=== PATIENT | female | born 1970 | race African-American/Black ===

== ENCOUNTER 2017-02-01 12:08 | Inpatient (IN) | payer MEDICAID, OTHER ==
[~2017-02-01] VITALS: Ht 154.9 cm; Wt 90.8 kg
[~2017-02-01 12:08] MED LIST: IBUP600T26 PO; LISI10TA PO; METO50CR PO; ROBA750T3 PO; TRAM50 PO
[2017-02-01 12:10] VITALS: BP 192/136; PULSE 75; RESP 15; TEMP 97.8; O2SAT 98
[2017-02-01 12:55] VITALS: BP 152/94; PULSE 66; RESP 15; O2SAT 100
--- NOTE | 2017-02-01 13:05 | RADRPT ---
EXAM DATE/TIME: 02/01/2017 12:51 [facility] COMPARISON: No previous studies available for comparison. INDICATIONS : Dizziness, nausea, short of breath. MEDICAL HISTORY : None. SURGICAL HISTORY : None. ENCOUNTER: Initial ACUITY: 4 - 6 days PAIN SCORE: 0/10 LOCATION: Bilateral chest FINDINGS: A single view of the chest demonstrates the lungs to be symmetrically aerated without evidence of mas s, infiltrate or effusion. The cardiomediastinal contours are unremarkable. Osseous structures are intact. CONCLUSION: Normal examination. Stewart Nguyen MD on February 01, 2017 at 13:04 Board Certified Radiologist. This report was verified electronically.
[2017-02-01 13:07] LABS: AUTOMATED NEUTROPHIL # 2.6 TH/MM3 (1.8-7.7); BASOPHIL # 0.1 TH/MM3 (0-0.2); BASOPHIL % 1.2 % (0.0-2.0); EOSINOPHIL # 0.2 TH/MM3 (0-0.4); EOSINOPHIL % 3.9 % (0.0-4.0); HEMATOCRIT 36.7 % (35.0-46.0); HEMO FLAGS DIFF FINAL; LYMPH % 42.8 % (9.0-44.0); LYMPHOCYTE # 2.6 TH/MM3 (1.0-4.8); MEAN CELL VOLUME 83.6 FL (80.0-100.0); MEAN CORPUSCULAR HEMOGLOBIN 28.8 PG (27.0-34.0); MEAN CORPUSCULAR HGB CONC 34.4 % (32.0-36.0); NEUT % 44.1 % (16.0-70.0); PLATELET COUNT 363 TH/MM3 (150-450); RED BLOOD COUNT 4.39 MIL/MM3 (4.00-5.30); RED CELL DISTRIBUTION WIDTH 14.2 % (11.6-17.2)
[2017-02-01 13:30] LABS: POTASSIUM 3.1 MEQ/L (3.5-5.1)
--- NOTE | 2017-02-01 13:33 | PD ---
HPI Chief Complaint: Headache Time Seen by Provider: 13:29 Travel History International Travel<30 days: No Contact w/Intl Traveler<30days: No Traveled to known affect area: No History of Present Illness HPI 46-year-old female that presents to the ED for evaluation of headache. Patient reports that she had a headache yesterday when she woke up. Per patient she lost her vision on her vision became blurry. Per patient she went back to sleep and her patient came back. The patient headaches on the left side. Per patient she also has numbness and tingling sensation to her left eye. She denies any numbness or tingling anywhere else. No weakness. No chest pain or shortness of breath. She does state that she has a history of headaches but she 's never had anything like this before. She does wear glasses and has stated that she heard patient has been blurry since this episode. She comes today because her symptoms are not improved completely. She still gets a headache on and off. Is not the worst headache of her life. No back pain or neck pain. No fevers chills or sweats. Pain per patient is 6 out of 10. Pressure-like. PFSH Past Medical History Depression: Yes Cardiovascular Problems: Yes (HTN) Hypertension: Yes Tetanus Vaccination: > 5 Years Influenza Vaccination: No ?: Not LMP: LAST MONTH Tubal Ligation: Yes Past Surgical History Surgical History: No Previous Surgery Hysterectomy: No Social History Alcohol Use: Yes Tobacco Use: No Substance Use: No Allergies-Medications (Allergen,Severity, Reaction): Coded Allergies: Norvasc (Verified Allergy, Severe, HIVES, 02/01/17) Wellbutrin (Verified Allergy, Severe, HIVES, 02/01/17) Reported Meds & Prescriptions Reported Meds & Active Scripts Active No Active Prescriptions or Reported Medications Review of Systems Except as stated in HPI: all other systems reviewed are Neg Physical Exam Narrative GENERAL: SKIN: Warm and dry. HEAD: Atraumatic. Normocephalic. EYES: Pupils equal and round 4 mms reactive to light and accomodation. No scleral icterus. No injection or drainage. ENT: No nasal bleeding or discharge. Mucous membranes pink and moist. No uvula deviation. No uvula deviation. NECK: Trachea midline. No JVD. CARDIOVASCULAR: Regular rate and rhythm. No murmurs, S3, S4. RESPIRATORY: No accessory muscle use. Clear to auscultation. Breath sounds equal bilaterally. GASTROINTESTINAL: Abdomen soft, non-tender, nondistended. Hepatic and splenic margins not palpable. MUSCULOSKELETAL: Extremities without clubbing, cyanosis, or edema. No obvious deformities. Full range of motion of the upper and lower extremities bilaterally. 2+ pulses bilaterally. NEUROLOGICAL: Awake and alert. No obvious cranial nerve deficits. Motor grossly within normal limits. Five out of 5 muscle strength in the arms and legs. Normal speech. PSYCHIATRIC: Appropriate mood and affect; insight and judgment normal. Data Data Last Documented VS Vital Signs Date Time Temp Pulse Resp B/P Pulse Ox O2 Delivery O2 Flow Rate FiO2 02/01/17 12:55 66 15 152/94 100 Room Air 02/01/17 12:10 97.8 Orders Electrocardiogram (02/01/17 12:43) Complete Blood Count With Diff (02/01/17 12:43) Basic Metabolic Panel (Bmp) (02/01/17 12:43) Thyroid Stimulating Hormone (02/01/17 12:43) Chest, Single Ap (02/01/17 12:43) Ct Brain W/O Iv Contrast(Rout) (02/01/17 12:43) Iv Access Insert/Monitor (02/01/17 12:43) Ecg Monitoring (02/01/17 12:43) Oximetry (02/01/17 12:43) Prochlorperazine Inj (Compazine Inj) (02/01/17 13:45) Diphenhydramine Inj (Benadryl Inj) (02/01/17 13:45) Ondansetron Inj (Zofran Inj) (02/01/17 13:47) Sodium Chlor 0.9% 1000 Ml Inj (Ns 1000 M (02/01/17 13:55) Potassium Chloride (Kcl) (02/01/17 15:45) Admit Order (Ed Use Only) (02/01/17 15:40) Labs Laboratory Tests Test 02/01/17 12:45 White Blood Count 6.0 TH/MM3 Red Blood Count 4.39 MIL/MM3 Hemoglobin 12.6 GM/DL Hematocrit 36.7 % Mean Corpuscular Volume 83.6 FL Mean Corpuscular Hemoglobin 28.8 PG Mean Corpuscular Hemoglobin 34.4 % Concent Red Cell Distribution Width 14.2 % Platelet Count 363 TH/MM3 Mean Platelet Volume 7.5 FL Neutrophils (%) (Auto) 44.1 % Lymphocytes (%) (Auto) 42.8 % Monocytes (%) (Auto) 8.0 % Eosinophils (%) (Auto) 3.9 % Basophils (%) (Auto) 1.2 % Neutrophils # (Auto) 2.6 TH/MM3 Lymphocytes # (Auto) 2.6 TH/MM3 Monocytes # (Auto) 0.5 TH/MM3 Eosinophils # (Auto) 0.2 TH/MM3 Basophils # (Auto) 0.1 TH/MM3 CBC Comment DIFF FINAL Differential Comment Sodium Level 139 MEQ/L Potassium Level 3.1 MEQ/L Chloride Level 105 MEQ/L Carbon Dioxide Level 25.0 MEQ/L Anion Gap 9 MEQ/L Blood Urea Nitrogen 9 MG/DL Creatinine 1.06 MG/DL Estimat Glomerular Filtration 67 ML/MIN Rate Random Glucose 75 MG/DL Calcium Level 8.9 MG/DL Thyroid Stimulating Hormone 1.140 uIU/ML [address] [place] [address] Medical Decision Making Medical Screen Exam Complete: Yes Emergency Medical Condition: Yes Medical Record Reviewed: Yes Interpretation(s) CBC & BMP Diagram 02/01/17 12:[address] 02/01/17 1243 Signed Impressions: Service Date/Time: Wednesday, February 01, 2017 14:15 - CONCLUSION: 1. Small focus of decreased density involving the right periventricular frontoparietal white matter. This could relate to a focal age indeterminate lacunar infarction or more focal area of chronic small vessel ischemic change. MRI could help differentiate. 2. Otherwise, no acute intracranial abnormality. Paul Dumont Jr., MD Chest X-Ray 02/01/17 1243 Signed Impressions: Service Date/Time: Wednesday, February 01, 2017 12:51 - CONCLUSION: Normal examination. Stewart Nguyen MD [facility] Differential Diagnosis Headache versus migraine headache versus cephalgia versus TIA versus stroke versus neuropathy versus visual loss versus a typical migraine Narrative Course 46-year-old female that presents to the ED for evaluation of left-sided headache. Patient was properly examined and was found to have signs and symptoms very consistent what appears to be headache. Patient reports some neurological deficits from the headache 2 days ago. Patient still has numbness and tingling to her left eye. Questionable TIA versus stroke versus a typical migraine. At this time I recommend labs and imaging. Case discussed in my attending Dr. Francisco who agrees with plan. Labs and imaging showed what appears to be abnormal CT scan. Unclear etiology symptoms. Definite concerning for TIA versus recent stroke. More than 6 hours old symptoms started yesterday in the morning. Case discussed with my attending Dr. Francisco who agrees to admission for CVA workup. This was discussed with the patient who agrees with plan. HEPAS was paged and Dr Lazar agrees to admission. Diagnosis Primary Impression: TIA (transient ischemic attack) Qualified Code: G45.9 - Transient cerebral ischemia, unspecified type Additional Impression: Cephalgia Qualified Code: R51 - Acute nonintractable headache, unspecified headache type Admitting Information Admitting Physician Requests: Observation Scripts No Active Prescriptions or Reported Meds González Mercado Feb 01, 2017 13:33
[2017-02-01] MEDS ORDERED: PROCHLORPERAZINE INJ 10 MG/2 ML VIAL IV PUSH ONE (13:45)
[2017-02-01] MEDS ORDERED: diphenhydrAMINE HCL 50 MG/ML VIAL IV PUSH ONE (13:45)
[2017-02-01] MEDS ORDERED: ONDANSETRON HCL 4 MG/2 ML VIAL ONE (13:47)
[2017-02-01] MEDS ORDERED: SODIUM CHLOR 0.9% 1000 ML INJ 1,000 ML IV SCH (13:55)
--- NOTE | 2017-02-01 14:27 | RADRPT ---
EXAM DATE/TIME: 02/01/2017 14:15 [facility] COMPARISON: CT BRAIN W/O CONTRAST, July 22, 2012, 12:13. INDICATIONS : Headache with intermittent blurred vision. RADIATION DOSE: 31.26 CTDIvol (mGy) MEDICAL HISTORY : Hypertension. SURGICAL HISTORY : Tubal ligation. ENCOUNTER: Initial ACUITY: 1 day PAIN SCALE: 4/10 LOCATION: cranial TECHNIQUE: Multiple contiguous axial images were obtained of the head. Using automated exposure control and adj ustment of the mA and/or kV according to patient size, radiation dose was kept as low as reasonably a chievable to obtain optimal diagnostic quality images. DICOM format image data is available electro nically for review and comparison. FINDINGS: There is an approximate 1 cm focal area of decreased attenuation involving the periventricular white matter of the right frontoparietal lobe. This is a new finding from the prior study. The remaining br ain parenchyma shows normal attenuation. No hemorrhage. Ventricles are normal in size. The paranasal sinuses and mastoid air cells are clear. Calvarium is intact. CONCLUSION: 1. Small focus of decreased density involving the right periventricular frontoparietal white matter. This could relate to a focal age indeterminate lacunar infarction or more focal area of chronic small vessel ischemic change. MRI could help differentiate. 2. Otherwise, no acute intracranial abnormality. Paul Dumont Jr., MD on February 01, 2017 at 14:21 Board Certified Radiologist. This report was verified electronically.
[2017-02-01] MEDS ORDERED: POTASSIUM CHLORIDE 10 MEQ CONTROLLED RELEASE TAB PO ONE (15:45)
[2017-02-01] MEDS ORDERED: LACTULOSE SYRUP 20 GM/30 ML CUP PO PRN (16:15)
[2017-02-01] MEDS ORDERED: ONDANSETRON HCL 4 MG/2 ML VIAL IVP PRN (16:15)
[2017-02-01] MEDS ORDERED: SODIUM CHLORIDE 0.9% FLUSH 10 ML FLUSH IV FLUSH PRN (16:15)
[2017-02-01] MEDS ORDERED: MAGNESIUM HYDROXIDE SUSP 30 ML CUP PO PRN (16:15)
[2017-02-01] MEDS ORDERED: NALOXONE HCL 0.4 MG/ML AMP IV PRN (16:15)
[2017-02-01] MEDS ORDERED: BISACODYL 10 MG SUPP RECTAL PRN (16:15)
[2017-02-01] MEDS ORDERED: SENNOSIDES 8.6 MG TAB PO PRN (16:15)
[2017-02-01 16:25] VITALS: BP 133/89; PULSE 67; RESP 15; O2SAT 99
[2017-02-01] MEDS: SODIUM CHLOR 0.9% 1000 ML INJ 1,000 ML IV SCH (16:52)
[2017-02-01 16:59] VITALS: BP 148/93; PULSE 71; RESP 15; O2SAT 99
[2017-02-01 20:00] VITALS: BP 155/101; PULSE 68; RESP 20; TEMP 98.5; O2SAT 98
[2017-02-01] MEDS: SODIUM CHLORIDE 0.9% FLUSH 10 ML FLUSH IV FLUSH SCH (21:00)
[2017-02-01] MEDS: DOCUSATE SODIUM 50 MG/SENNA 8.6 MG TAB PO SCH (21:00)
--- NOTE | 2017-02-01 21:06 | RADRPT ---
EXAM DATE/TIME: 02/01/2017 20:04 [facility] COMPARISON: No previous studies available for comparison. INDICATIONS : Cerebrovascular accident. MEDICAL HISTORY : Hyperthyroidism. SURGICAL HISTORY : Tubal ligation. ENCOUNTER: Initial ACUITY: 1 day PAIN SCORE: 07/28 LOCATION: Bilateral neck PEAK SYSTOLIC VELOCITIES (cm/sec): ICA/CCA RATIO: Right: 0.9 Left: 1.6 ICA: Right: 66 Left: 149 CCA: Right: 70 Left: 92 ECA: Right: 38 Left: 61 VERTEBRAL: Right: 37 antegrade Left: 62 antegrade Elevated flow velocities and ICA/CCA ratios have been found to correlate with increased degrees of vessel stenosis, calculated as percentage of diameter relative to a normal segment of distal ICA/CCA FINDINGS: RIGHT CAROTID: No significant stenosis is visualized. The waveforms are within normal limits. LEFT CAROTID: No significant stenosis is visualized. The waveforms are within normal limits. VERTEBRAL ARTERIES: Antegrade flow is seen in both vertebral arteries. MISCELLANEOUS: None. CONCLUSION: 1. No evidence for hemodynamically significant stenosis. Eduard Mosqueda MD on February 01, 2017 at 21:04 Board Certified Radiologist. This report was verified electronically.
--- NOTE | 2017-02-01 22:11 | RADRPT ---
EXAM DATE/TIME: 02/01/2017 21:48 [facility] COMPARISON: No previous studies available for comparison. INDICATIONS : Left leg numbness. MEDICAL HISTORY : Hypertension. SURGICAL HISTORY : Tubal ligation. ENCOUNTER: Initial ACUITY: 1 day PAIN SCORE: 1/10 LOCATION: Left leg. TECHNIQUE: Venous ultrasound of the leg was performed from the inguinal ligament to the proximal calf. Real-padma e, color Doppler and spectral tracing, compression and augmentation techniques were used. FINDINGS: There is normal compressibility of the deep venous system from the inguinal region to the proximal ca lf. No echogenic clot is seen in the lumen of the common femoral, femoral, popliteal, and posterior tibial veins. There is a normal response of the venous system to proximal and distal augmentation an d respiration. CONCLUSION: Normal examination. Eduard Mosqueda MD on February 01, 2017 at 22:09 Board Certified Radiologist. This report was verified electronically.
[2017-02-02] VITALS (8 sets, daily range): BP systolic 139–161; BP diastolic 85–97; PULSE 61–77; RESP 18–20; TEMP 97–98.8; O2SAT 95–100
--- NOTE | 2017-02-02 05:56 | HHI.HP ---
[facility] No Primary Care Physician Admission Diagnosis TIA, CVA rule out, cephaglia Diagnoses: Chief Complaint: headache, blurry vision and left leg numbness Travel History International Travel<30 Days: No Contact w/Intl Traveler <30 Da: No Traveled to Known Affected Are: No History of Present Illness 46 y/o female with a history of HTN and migraines presented to the ED with complaints of a GOVEA, blurry vision and left leg numbness. Patient states Wednesday she woke up with a throbbing headache, 8/10, blurry vision and left leg numbness, She preceded then to go back to sleep. When she woke up and continued throughout the day her vision began to get better but she still had a headache and numbness. She came to the hospital today because she could not take the pain from her leg and head anymore. She states her vision is now back to baseline but her headache is still about a 6-7 and her leg is painful and numb. Nothing makes the pain better or worse in her leg. She has not taken her blood pressure medications for more than six months because she does not have a PCP. She use to take clonidine, lisinopril and nifedipine. She denies any chest pain, sob, fever or chills. Review of Systems Constitutional: DENIES: Fever, Chills Respiratory: DENIES: Cough, Sputum production, Shortness of breath Cardiovascular: DENIES: Chest pain, Lower Extremity Edema Gastrointestinal: DENIES: Nausea, Vomiting Genitourinary: DENIES: Urinary frequency, Hematuria, Dysuria Musculoskeletal: DENIES: Back pain, Neck pain Neurologic: COMPLAINS OF: Paresthesias Psychiatric: COMPLAINS OF: Mood changes Past Family Social History Past Medical History HTN Migraines Depression Past Surgical History Tubal ligation Reported Medications Reported Meds & Active Scripts Active No Active Prescriptions or Reported Medications Allergies: Coded Allergies: Norvasc (Verified Allergy, Severe, HIVES, 02/01/17) Wellbutrin (Verified Allergy, Severe, HIVES, 02/01/17) Active Ordered Medications Current Medications Medications (Trade) Dose Ordered Sig/Lesly Route Start Time Stop Time Status Last Admin (NS 1000 ml Inj) 1,000 ml @ 70 mls/hr [id number] IV 02/01/17 16:12 02/01/17 16:52 (NS Flush) 2 ml UNSCH PRN IV FLUSH 02/01/17 16:15 (NS Flush) 2 ml BID IV FLUSH 02/01/17 21:00 (Zofran Inj) 4 mg Q6H PRN IVP 02/01/17 16:15 (Narcan Inj) 0.4 mg UNSCH PRN IV 02/01/17 16:15 (Gisele-Colace) 1 tab BID PO 02/01/17 21:00 (Milk Of Magnesia Liq) 30 ml Q12H PRN PO 02/01/17 16:15 (Senokot) 17.2 mg Q12H PRN PO 02/01/17 16:15 (Dulcolax Supp) 10 mg DAILY PRN RECTAL 02/01/17 16:15 (Lactulose Liq) 30 ml DAILY PRN PO 02/01/17 16:15 (Aspirin Chew) 81 mg DAILY PO 02/02/17 09:00 Family History Family history significant for hypertension Social History Tobacco use: Denies Alcohol use: Occasionally Illicit drug use: Denies Physical Exam Vital Signs Vital Signs Date Time Temp Pulse Resp B/P Pulse Ox O2 Delivery O2 Flow Rate FiO2 02/02/17 04:00 97.3 75 20 150/97 100 02/02/17 03:38 64 02/02/17 00:00 98.8 76 20 139/85 100 02/01/17 20:00 98.5 68 20 155/101 98 02/01/17 16:59 71 15 148/93 99 Room Air 02/01/17 16:25 67 15 133/89 99 Room Air 02/01/17 12:55 66 15 152/94 100 Room Air 02/01/17 12:55 100 Room Air 02/01/17 12:10 97.8 75 15 192/136 98 Physical Exam GENERAL: This is a well-nourished, well-developed patient, in no apparent distress. SKIN: No rashes, ecchymoses or lesions. Cool and dry. HEAD: Atraumatic. Normocephalic. EYES: Pupils equal round and reactive. ENT: Nose without bleeding, purulent drainage or septal hematoma. Airway patent. NECK: Trachea midline. No JVD or lymphadenopathy. Supple, nontender, no meningeal signs. CARDIOVASCULAR: Regular rate and rhythm without murmurs, gallops, or rubs. RESPIRATORY: Clear to auscultation. Breath sounds equal bilaterally. No wheezes , rales, or rhonchi. GASTROINTESTINAL: Abdomen soft, non-tender, nondistended. No hepato-splenomegaly , or palpable masses. No guarding. MUSCULOSKELETAL: Extremities without clubbing, cyanosis, or edema. No joint tenderness, effusion, or edema noted. No calf tenderness. NEUROLOGICAL: Awake and alert. Motor and sensory grossly within normal limits. LLE numbness. Five out of 5 muscle strength in all muscle groups. Normal speech. Laboratory Laboratory Tests Test 02/01/17 12:45 White Blood Count 6.0 Red Blood Count 4.39 Hemoglobin 12.6 Hematocrit 36.7 Mean Corpuscular Volume 83.6 Mean Corpuscular Hemoglobin 28.8 Mean Corpuscular Hemoglobin 34.4 Concent Red Cell Distribution Width 14.2 Platelet Count 363 Mean Platelet Volume 7.5 Neutrophils (%) (Auto) 44.1 Lymphocytes (%) (Auto) 42.8 Monocytes (%) (Auto) 8.0 Eosinophils (%) (Auto) 3.9 Basophils (%) (Auto) 1.2 Neutrophils # (Auto) 2.6 Lymphocytes # (Auto) 2.6 Monocytes # (Auto) 0.5 Eosinophils # (Auto) 0.2 Basophils # (Auto) 0.1 CBC Comment DIFF FINAL Differential Comment Sodium Level 139 Potassium Level 3.1 Chloride Level 105 Carbon Dioxide Level 25.0 Anion Gap 9 Blood Urea Nitrogen 9 Creatinine 1.06 Estimat Glomerular Filtration 67 Rate Random Glucose 75 Calcium Level 8.9 Thyroid Stimulating Hormone 1.140 3rd Gen Result Diagram: 02/01/17 1245 02/01/17 1245 Imaging Last Impressions Lower Extremity Ultrasound 02/01/176 Signed Impressions: Service Date/Time: Wednesday, February 01, 2017 21:48 - CONCLUSION: Normal examination. Eduard Mosqueda MD Head CT 02/01/17 1243 Signed Impressions: Service Date/Time: Wednesday, February 01, 2017 14:15 - CONCLUSION: 1. Small focus of decreased density involving the right periventricular frontoparietal white matter. This could relate to a focal age indeterminate lacunar infarction or more focal area of chronic small vessel ischemic change. MRI could help differentiate. 2. Otherwise, no acute intracranial abnormality. Paul Dumont Jr., MD Chest X-Ray 02/01/17 1243 Signed Impressions: Service Date/Time: Wednesday, February 01, 2017 12:51 - CONCLUSION: Normal examination. Stewart Nguyen MD Carotid Artery Ultrasound 02/01/17 0000 Signed Impressions: Service Date/Time: Wednesday, February 01, 2017 20:04 - CONCLUSION: 1. No evidence for hemodynamically significant stenosis. Eduard Mosqueda MD Assessment and Plan Problem List: (1) TIA (transient ischemic attack) ICD Code: G45.9 Status: Acute (2) Cephalgia ICD Code: R51 Status: Acute (3) HTN (hypertension) ICD Code: I10 Status: Acute Assessment and Plan 46 y/o female with a history of HTN and migraines presented to the ED with complaints of a GOVEA, blurry vision and left leg numbness. TIA, R/O CVA, patient with left leg numbness and pain Head CT reviewed and shows Small focus of decreased density involving the right periventricular frontoparietal white matter. This could relate to a focal age indeterminate lacunar infarction or more focal area of chronic small vessel ischemic change.Otherwise, no acute intracranial abnormality. Doppler Lower extremity US reviewed and negative for DVT Carotid US reviewed and unremarkable -MRI/MRA Brain ordered -MRI spine ordered by neurology -Consult neurology, Dr. Buenrostro -ASA daily -Lipid panel ordered -Allow permissive htn until CVA is ruled out -Pain management with IV Dilaudid -PT eval and treat Cephalalgia with blurry vision, may be related to HTN -Pain management with Tyl Hypokalemia, potassium 3.1 -Supplement given -BMP in AM, trend and replace as needed HTN, patient was taking clonidine, nifedipine, and lisinopril -Will begin a new regimen once CVA is ruled out -Case management consult for patient assistance with medication DVT prophylaxis: SCDs Discussed Condition With Patient and RN Physician Certification 2 Midnight Certification Type: Admission for Inpatient Services Order for Inpatient Services The services are ordered in accordance with Medicare regulations or non- Medicare payer requirements, as applicable. In the case of services not specified as inpatient-only, they are appropriately provided as inpatient services in accordance with the 2-midnight benchmark. Estimated LOS (days): 3 days is the estimated time the patient will need to remain in the hospital, assuming treatment plan goals are met and no additional complications. Post-Hospital Plan: Home Problem Qualifiers (1) TIA (transient ischemic attack): Qualified Code: G45.9 - Transient cerebral ischemia, unspecified type (2) Cephalgia: Qualified Code: R51 - Acute nonintractable headache, unspecified headache type Sally Del Real Feb 02, 2017 05:56
[2017-02-02] MEDS: SODIUM CHLOR 0.9% 1000 ML INJ 1,000 ML IV SCH ×2 (06:18→21:02)
[2017-02-02] MEDS ORDERED: ACETAMINOPHEN 325 MG TAB PO PRN (06:30)
--- NOTE | 2017-02-02 08:23 | MB ---
cc: RYAN DAVE DATE OF CONSULTATION: 02/01/2017 REASON FOR CONSULTATION Possible TIA. HISTORY OF PRESENT ILLNESS Ms. Dumont is a very nice 46-year-old female who developed a headache, mainly in the left side, which was throbbing in nature and pounding. She also noted numbness in the left leg, mainly in the anterior thigh area. She does have back pain as well. She had vision changes as well where she suddenly had visual loss and became very blurry; this returned to normal. PAST MEDICAL HISTORY She does have a history of migraine headaches in the past. NEUROLOGIC EXAMINATION Vital Signs: Blood pressure 148/93, pulse 71, respirations 15, temperature 97 degrees. Higher cortical functions: Normal. Cranial nerves: Intact. Motor exam: There is no focal deficit. Sensory exam intact. Reflexes are symmetric. IMAGING CT of the brain: Small focus of decreased density in the right periventricular frontoparietal white matter, possible old lacunar infarct, etiology unclear. Carotid ultrasound is normal. LABORATORY White count 6000, hemoglobin 12.6, hematocrit 36.7%, platelet count 363,000. Sodium 139, potassium 3.1, chloride 105, CO2 25, BUN 9, creatinine 1.06. IMPRESSION 1. Headaches, suspect migraine. 2. Left leg numbness, rule out meralgia paresthetica, rule out lumbar radiculopathy. RECOMMENDATIONS MRI brain, MRA brain. For further evaluation I would also like to get an MRI of the lumbar spine to rule out lumbar stenosis. MD PATRICIA Baez/ROSAS /9:32 PM /8:20 AM
[2017-02-02] MEDS: SODIUM CHLORIDE 0.9% FLUSH 10 ML FLUSH IV FLUSH SCH ×2 (08:38→21:00)
[2017-02-02] MEDS: DOCUSATE SODIUM 50 MG/SENNA 8.6 MG TAB PO SCH ×2 (08:39→21:02)
[2017-02-02] MEDS: ASPIRIN 81 MG CHEW TAB PO SCH (08:39)
[2017-02-02 08:43] LABS: AUTOMATED NEUTROPHIL # 2.1 TH/MM3 (1.8-7.7); BASOPHIL # 0.1 TH/MM3 (0-0.2); EOSINOPHIL # 0.2 TH/MM3 (0-0.4); EOSINOPHIL % 3.7 % (0.0-4.0); HEMATOCRIT 35.2 % (35.0-46.0); HEMO FLAGS DIFF FINAL; LYMPH % 47.8 % (9.0-44.0); LYMPHOCYTE # 2.6 TH/MM3 (1.0-4.8); MEAN CELL VOLUME 84.1 FL (80.0-100.0); MEAN CORPUSCULAR HGB CONC 34.5 % (32.0-36.0); NEUT % 38.5 % (16.0-70.0); PLATELET COUNT 327 TH/MM3 (150-450); RED BLOOD COUNT 4.19 MIL/MM3 (4.00-5.30); RED CELL DISTRIBUTION WIDTH 14.4 % (11.6-17.2); WHITE BLOOD COUNT 5.4 TH/MM3 (4.0-11.0)
[2017-02-02 09:20] LABS: ANION GAP 6 MEQ/L (5-15); BICARBONATE 25.5 MEQ/L (21.0-32.0); BLOOD UREA NITROGEN 6 MG/DL (7-18); CHLORIDE 108 MEQ/L (98-107); GLOMERULAR FILTRATION RATE 87 ML/MIN (>89); SODIUM (NA) 139 MEQ/L (136-145)
[2017-02-02 09:23] LABS: BETA HCG QUANT LESS THAN 1 MIU/ML (0-5)
[2017-02-02 10:15] LABS: HDL CHOLESTEROL 40.8 MG/DL (40.0-60.0)
[2017-02-02] MEDS: HYDROmorphone HCL PF 1 MG/ML VIAL IV PUSH PRN ×2 (12:36→22:22)
--- NOTE | 2017-02-02 15:29 | HHI.PR ---
Addendum to Inpatient Note Addendum Reason: Additional Documentation Additional Information Patient tells me that she continues to have a mild headache however the pain medication is helping. She tells me that her vision is improving but still blurry. Denies any weakness in her upper or lower extremities. She continued to have some numbness in her lower extremity. He denies any chest pain, shortness of breath but admits to nausea and vomited last night On exam: Her pupils are equal and reactive to light. Extraocular motions are intact. She moves all extremities. CVS: Regular rate and rhythm with no murmurs. Lungs are clear. Abdomen is soft nontender with no guarding or rebound. TIA, R/O CVA, patient with left leg numbness and pain Head CT reviewed and shows Small focus of decreased density involving the right periventricular frontoparietal white matter. This could relate to a focal age indeterminate lacunar infarction or more focal area of chronic small vessel ischemic change.Otherwise, no acute intracranial abnormality. Doppler Lower extremity US reviewed and negative for DVT Carotid US reviewed and unremarkable -MRI/MRA Brain ordered -MRI spine ordered by neurology -Dr. Buenrostro following. -ASA daily -Lipid panel LDL 140, HDL 40, triglycerides 118. Patient was started on Lipitor 40 mg daily -Allow permissive htn until CVA is ruled out -Added [place] when necessary for pain and IV Dilaudid for breakthrough pain. -PT eval and treat Cephalalgia with blurry vision, may be related to HTN -Pain management with norco Hypokalemia, potassium 3.0 -Supplement given -BMP in AM, trend and replace as needed HTN, patient was taking clonidine, nifedipine, and lisinopril -Will begin a new regimen once CVA is ruled out - Vasotec 1.25mg IV q6hr prn BP>180/100 -Case management consult for patient assistance with medication Bessie Lazar MD Feb 02, 2017 15:29
[2017-02-02] MEDS ORDERED: ACETAMINOPHEN/HYDROcodone 325 MG/5 MG TAB PO PRN (15:30)
[2017-02-02] MEDS ORDERED: ENALAPRILAT 1.25 MG/ML VIAL IV PUSH PRN (15:30)
[2017-02-02] MEDS: ACETAMINOPHEN/HYDROcodone 325 MG/10 MG TAB PO PRN (18:53)
--- NOTE | 2017-02-02 19:39 | HHI.PR ---
Review/Management Diagnosis headache--follow up brainMRI and MRA left leg numbness--possibly lumbar radiculopathy vs meralgia paresthetica--f/u mri lumbar spine Diagnosis/Plan: Subjective Subjective Comments No acute events reported Headache resolved still with left thigh numbness Active Medications Current Medications Medications (Trade) Dose Ordered Sig/Lesly Route Start Time Stop Time Status Last Admin (NS 1000 ml Inj) 1,000 ml @ 70 mls/hr [id number] IV 02/01/17 16:12 02/02/17 06:18 (NS Flush) 2 ml UNSCH PRN IV FLUSH 02/01/17 16:15 (NS Flush) 2 ml BID IV FLUSH 02/01/17 21:00 (Zofran Inj) 4 mg Q6H PRN IVP 02/01/17 16:15 02/02/17 16:40 (Narcan Inj) 0.4 mg UNSCH PRN IV 02/01/17 16:15 (Gisele-Colace) 1 tab BID PO 02/01/17 21:00 02/02/17 08:39 (Milk Of Magnesia Liq) 30 ml Q12H PRN PO 02/01/17 16:15 (Senokot) 17.2 mg Q12H PRN PO 02/01/17 16:15 (Dulcolax Supp) 10 mg DAILY PRN RECTAL 02/01/17 16:15 (Lactulose Liq) 30 ml DAILY PRN PO 02/01/17 16:15 (Aspirin Chew) 81 mg DAILY PO 02/02/17 09:00 02/02/17 08:39 (Tylenol) 650 mg Q4H PRN PO 02/02/17 06:30 02/02/17 06:21 (Dilaudid Pf Inj) 0.2 mg Q4H PRN IV PUSH 02/02/17 06:30 02/02/17 12:36 (Lipitor) 40 mg DAILY PO 02/03/17 09:00 ([place] 5-325 Mg) 1 tab Q4H PRN PO 02/02/17 15:30 ([place] 10-325 Mg) 1 tab Q6H PRN PO 02/02/17 15:30 02/02/17 18:53 (Vasotec Inj) 1.25 mg Q6H PRN IV PUSH 02/02/17 15:30 Allergies Allergies Coded Allergies Norvasc (Verified Allergy, Severe, HIVES, 02/01/17) Wellbutrin (Verified Allergy, Severe, HIVES, 02/01/17) Exam I&O / VS 02/01/17 02/01/17 02/02/17 14:59 22:59 06:59 Intake Total 240 ml Balance 240 ml Intake Oral 240 ml # Voids 3 # Bowel Movements 0 Vital Signs Date Time Temp Pulse Resp B/P Pulse Ox O2 Delivery O2 Flow Rate FiO2 02/02/17 16:00 98.1 62 20 161/96 99 02/02/17 12:00 98.7 73 20 144/92 98 02/02/17 08:00 97.0 61 20 143/89 99 02/02/17 07:00 77 02/02/17 04:00 97.3 75 20 150/97 100 02/02/17 03:38 64 02/02/17 00:00 98.8 76 20 139/85 100 02/01/17 20:00 98.5 68 20 155/101 98 Exam Comments alert, speech normal Cn 2-12 normal Motor -- no focal deficits Objective Micro and Labs Laboratory Tests Test 02/02/17 07:54 White Blood Count 5.4 Red Blood Count 4.19 Hemoglobin 12.2 Hematocrit 35.2 Mean Corpuscular Volume 84.1 Mean Corpuscular Hemoglobin 29.0 Mean Corpuscular Hemoglobin 34.5 Concent Red Cell Distribution Width 14.4 Platelet Count 327 Mean Platelet Volume 7.5 Neutrophils (%) (Auto) 38.5 Lymphocytes (%) (Auto) 47.8 Monocytes (%) (Auto) 9.0 Eosinophils (%) (Auto) 3.7 Basophils (%) (Auto) 1.0 Neutrophils # (Auto) 2.1 Lymphocytes # (Auto) 2.6 Monocytes # (Auto) 0.5 Eosinophils # (Auto) 0.2 Basophils # (Auto) 0.1 CBC Comment DIFF FINAL Differential Comment Sodium Level 139 Potassium Level 3.0 Chloride Level 108 Carbon Dioxide Level 25.5 Anion Gap 6 Blood Urea Nitrogen 6 Creatinine 0.85 Estimat Glomerular Filtration 87 Rate Random Glucose 81 Calcium Level 8.1 Triglycerides Level 118 Cholesterol Level 204 LDL Cholesterol 140 HDL Cholesterol 40.8 Cholesterol/HDL Ratio 5.00 Human Chorionic Gonadotropin, LESS THAN 1 Quant Gabo Buenrostro PhD Feb 02, 2017 19:39
[2017-02-02] MEDS ORDERED: FAMOTIDINE 20 MG TAB PO ONE (23:15)
[2017-02-03] VITALS (7 sets, daily range): BP systolic 138–163; BP diastolic 84–95; PULSE 54–87; RESP 16–20; TEMP 97.9–98.3; O2SAT 96–100
[2017-02-03] MEDS: ACETAMINOPHEN/HYDROcodone 325 MG/10 MG TAB PO PRN ×2 (04:09→17:14)
[2017-02-03] MEDS: SODIUM CHLORIDE 0.9% FLUSH 10 ML FLUSH IV FLUSH SCH ×2 (09:00→21:26)
[2017-02-03] MEDS: DOCUSATE SODIUM 50 MG/SENNA 8.6 MG TAB PO SCH ×2 (09:49→21:26)
[2017-02-03] MEDS: FAMOTIDINE 20 MG TAB PO SCH ×2 (09:50→21:25)
[2017-02-03] MEDS: ASPIRIN 81 MG CHEW TAB PO SCH (09:50)
[2017-02-03] MEDS: ATORVASTATIN 40 MG TAB PO SCH (09:50)
[2017-02-03] MEDS: SODIUM CHLOR 0.9% 1000 ML INJ 1,000 ML IV SCH (12:00)
--- NOTE | 2017-02-03 12:03 | RADRPT ---
EXAM DATE/TIME: 02/03/2017 11:32 [facility] COMPARISON: No previous studies available for comparison. INDICATIONS : MRI clearance, possible screw in abdomen. MEDICAL HISTORY : None. SURGICAL HISTORY : None. ENCOUNTER: Initial ACUITY: 1 day PAIN SCORE: 0/10 LOCATION: Bilateral abdomen. FINDINGS: Supine view of the abdomen was performed. The abdominal bowel gas pattern is normal. No abnormal ma sses, calcifications, or organomegaly is seen. The osseous structures are unremarkable. CONCLUSION: Normal examination. Stewart Nguyen MD on February 03, 2017 at 12:02 Board Certified Radiologist. This report was verified electronically.
--- NOTE | 2017-02-03 13:11 | RADRPT ---
EXAM DATE/TIME: 02/03/2017 12:13 [facility] COMPARISON: No previous studies available for comparison. INDICATIONS : LEFT LEG NUMBNESS MEDICAL HISTORY : Hypertension. SURGICAL HISTORY : Tubal ligation. ENCOUNTER: Subsequent ACUITY: 3 day PAIN SCORE: 0/10 LOCATION: LUMBAR TECHNIQUE: Multiplanar multisequence MRI of the lumbar spine was performed without contrast. FINDINGS: The most caudal appearing lumbar vertebra is numbered as L5. VERTEBRAE: Homogeneous signal. Normal alignment. CONUS: Normal level and configuration. T12-L1: The thecal sac has a normal diameter. No evidence of disc bulge or protrusion. The neural foramina are patent bilaterally. L1-L2: The thecal sac has a normal diameter. No evidence of disc bulge or protrusion. The neural foramina are patent bilaterally. L2-L3: The thecal sac has a normal diameter. No evidence of disc bulge or protrusion. The neural foramina are patent bilaterally. L3-L4: Asymmetric left-sided disc bulge abuts ventral thecal sac without canal stenosis. The neural foramin a are patent bilaterally. L4-L5: Mild broad-based disc bulge abuts the ventral thecal sac without canal stenosis. Mild facet arthropat hy. The neural foramina are patent bilaterally. L5-S1: Small to moderate central protrusion abuts the ventral thecal sac and abuts both S1 nerve roots in th e lateral recesses greater on the left. No canal stenosis. Mild facet arthropathy. The neural forami na are patent bilaterally. CONCLUSION: 1. Disc bulges at L3-4 and L4-5 levels without canal stenosis. 2. Small to moderate central protrusion abuts the S1 nerve roots in the lateral recesses but greater on the left. This likely accounts for patient's symptoms. No canal stenosis. Pj De Oliveira MD on February 03, 2017 at 13:07 Board Certified Radiologist. This report was verified electronically.
--- NOTE | 2017-02-03 13:32 | RADRPT ---
EXAM DATE/TIME: 02/03/2017 12:13 [facility] COMPARISON: No previous studies available for comparison. INDICATIONS : HEADACHE MEDICAL HISTORY : Hypertension. SURGICAL HISTORY : Tubal ligation. ENCOUNTER: Subsequent ACUITY: 2 day PAIN SCORE: 0/10 LOCATION: HEAD Please note a normal MRA of the brain does not entirely exclude the possibility of a small aneurysm, nor the possibility of distal intracranial vessel disease. TECHNIQUE: 3D time of flight MRA was performed. Source images, multiplanar STS MIP, and 3D volume MIP reconstru ctions were reviewed. FINDINGS: There is excellent visualization of the major intracranial arteries out to the second-order branch ve ssels. There is no evidence for aneurysm, vessel truncation or stenosis, and no evidence for vascula r malformation. Persistent circulation right posterior cerebral artery. Anterior communicating artery. No stenosis or aneurysm in the anterior, middle or posterior cerebral arteries. CONCLUSION: 1. Normal variants as described above. 2. No large vessel stenosis or aneurysm. Pj De Oliveira MD on February 03, 2017 at 13:27 Board Certified Radiologist. This report was verified electronically.
--- NOTE | 2017-02-03 13:43 | RADRPT ---
EXAM DATE/TIME: 02/03/2017 12:13 [facility] COMPARISON: No previous studies available for comparison. INDICATIONS : Cephalgia. CONTRAST: 18 cc Omniscan (gadodiamide) IV MEDICAL HISTORY : Hypertension. SURGICAL HISTORY : Tubal ligation. ENCOUNTER: Subsequent ACUITY: 3 day PAIN SCORE: 0/10 LOCATION: HEAD TECHNIQUE: Multiplanar, multisequence MRI of the brain was performed both prior to and following the administrat ion of paramagnetic contrast. FINDINGS: CEREBRUM: The ventricles are normal for age. Bilateral basal ganglia infarcts. No evidence of midline shift, ma ss lesion, hemorrhage or acute infarction. No extraaxial fluid collections are seen. The pituitary gland and suprasellar cistern are normal in configuration. WHITE MATTER: Scattered areas of high flair significant signal abnormalities are seen in the white matter. POSTERIOR FOSSA: The cerebellum and brainstem are intact. The 4th ventricle is midline. The cerebellopontine angle is unremarkable. The cerebellar tonsils are normal in position. DIFFUSION IMAGING: No focal areas of restricted diffusion are seen. No evidence of acute infarction. EXTRACRANIAL: The visualized portions of the orbits and paranasal sinuses are unremarkable. POST-CONTRAST: No abnormal areas of parenchymal or dural enhancement. No evidence of blood-brain barrier breakdown. CONCLUSION: 1. No acute intracranial abnormality. 2. Prominent white matter changes could be chronic ischemic small vessel vasculopathy versus demyelin ating process. Pj De Oliveira MD on February 03, 2017 at 13:41 Board Certified Radiologist. This report was verified electronically.
[2017-02-03] MEDS ORDERED: GADODIAMIDE PF 287 MG/ML 20 ML VIAL (for RAD MRI) IV ONE (14:13)
--- NOTE | 2017-02-03 14:18 | HHI.PR ---
Subjective Remarks earlier today she had some nausea and vomitted once. hasn't had this since. ordered food to eat and thinks that she felt nauseous because she hadn't eaten. denies any CP/SOB. blurry vision is much improved, no headaches at this time. Objective Vitals Vital Signs Date Time Temp Pulse Resp B/P Pulse Ox O2 Delivery O2 Flow Rate FiO2 02/03/17 08:00 98.0 64 18 163/88 99 02/03/17 07:57 87 02/03/17 06:30 98.3 67 20 161/95 96 02/03/17 06:30 98.3 67 20 161/95 96 02/03/17 00:00 98.1 72 18 138/85 97 02/02/17 20:00 69 02/02/17 20:00 98.3 64 18 156/95 95 02/02/17 16:00 98.1 62 20 161/96 99 I/O 02/02/17 02/02/17 02/02/17 02/03/17 02/03/17 02/03/17 07:00 15:00 23:00 07:00 15:00 23:00 Intake Total 240 ml 240 ml 1406 ml Balance 240 ml 240 ml 1406 ml Intake Oral 240 ml 240 ml IV Total 1406 ml # Voids 3 4 3 # Bowel Movements 0 Result Diagram: 02/02/17 0754 02/02/17 0754 Imaging Last Impressions Lumbar Spine MRI 02/03/17 0000 Signed Impressions: Service Date/Time: Friday, February 03, 2017 12:13 - CONCLUSION: 1. Disc bulges at L3-4 and L4-5 levels without canal stenosis. 2. Small to moderate central protrusion abuts the S1 nerve roots in the lateral recesses but greater on the left. This likely accounts for patient's symptoms. No canal stenosis. Pj De Oliveira MD Head Magnetic Resonance Angiography 02/03/17 0000 Signed Impressions: Service Date/Time: Friday, February 03, 2017 12:13 - CONCLUSION: 1. Normal variants as described above. 2. No large vessel stenosis or aneurysm. Pj De Oliveira MD Brain MRI 02/03/17 0000 Signed Impressions: Service Date/Time: Friday, February 03, 2017 12:13 - CONCLUSION: 1. No acute intracranial abnormality. 2. Prominent white matter changes could be chronic ischemic small vessel vasculopathy versus demyelinating process. Pj De Oliveira MD Abdomen X-Ray 02/03/17 0000 Signed Impressions: Service Date/Time: Friday, February 03, 2017 11:32 - CONCLUSION: Normal examination. Stewart Nguyen MD Lower Extremity Ultrasound 02/01/17 2206 Signed Impressions: Service Date/Time: Wednesday, February 01, 2017 21:48 - CONCLUSION: Normal examination. Eduard Mosqueda MD Head CT 02/01/17 1243 Signed Impressions: Service Date/Time: Wednesday, February 01, 2017 14:15 - CONCLUSION: 1. Small focus of decreased density involving the right periventricular frontoparietal white matter. This could relate to a focal age indeterminate lacunar infarction or more focal area of chronic small vessel ischemic change. MRI could help differentiate. 2. Otherwise, no acute intracranial abnormality. Paul Dumont Jr., MD Chest X-Ray 02/01/17 1243 Signed Impressions: Service Date/Time: Wednesday, February 01, 2017 12:51 - CONCLUSION: Normal examination. Stewart Nguyen MD Carotid Artery Ultrasound 02/01/17 0000 Signed Impressions: Service Date/Time: Wednesday, February 01, 2017 20:04 - CONCLUSION: 1. No evidence for hemodynamically significant stenosis. Eduard Mosqueda MD Objective Remarks GENERAL: This is a well-nourished, well-developed patient, in no apparent distress. HEAD: Atraumatic. Normocephalic. EYES: Pupils equal round and reactive. EOMI ENT: Nose without drainage. Airway patent. NECK: Trachea midline. No JVD or lymphadenopathy. Supple, nontender, no meningeal signs. CARDIOVASCULAR: Regular rate and rhythm without murmurs. RESPIRATORY: Clear to auscultation. Breath sounds equal bilaterally. No wheezes , rales, or rhonchi. GASTROINTESTINAL: Abdomen soft, non-tender, nondistended. No hepato-splenomegaly , or palpable masses. No guarding. MUSCULOSKELETAL: Extremities without edema. No joint tenderness, effusion, or edema noted. No calf tenderness. NEUROLOGICAL: Awake and alert. Motor and sensory grossly within normal limits. LLE numbness. Five out of 5 muscle strength in all muscle groups. Normal speech. A/P Problem List: (1) TIA (transient ischemic attack) ICD Code: G45.9 Status: Acute (2) Cephalgia ICD Code: R51 Status: Acute (3) HTN (hypertension) ICD Code: I10 Status: Acute Assessment and Plan TIA, R/O CVA, patient with left leg numbness and pain Head CT reviewed and shows Small focus of decreased density involving the right periventricular frontoparietal white matter. This could relate to a focal age indeterminate lacunar infarction or more focal area of chronic small vessel ischemic change.Otherwise, no acute intracranial abnormality. Doppler Lower extremity US reviewed and negative for DVT Carotid US reviewed and unremarkable -MRI/MRA: No acute intracranial abnormality. 2. Prominent white matter changes could be chronic ischemic small vessel vasculopathy versus demyelinating process. Normal variants. No large vessel stenosis or aneurysm -MRI spine: Disc bulges at L3-4 and L4-5 levels without canal stenosis. 2. Small to moderate central protrusion abuts the S1 nerve roots in the lateral recesses but greater on the left. This likely accounts for patient's symptoms. No canal stenosis -Dr. Buenrostro following. Will contact him to see if ok for discharge from his standpoint. will start pt on amlodipine 10mg po daily. monitor BPs -ASA daily -Lipid panel LDL 140, HDL 40, triglycerides 118. on Lipitor 40 mg daily - pain controlled w pain med regimen -PT evaluated the patient and doesn't recommend any PT Cephalalgia with blurry vision, may be related to HTN -Pain management with norco Hypokalemia -Supplement given -BMP in AM, trend and replace as needed HTN, -Will begin a new regimen once CVA is ruled out - Vasotec 1.25mg IV q6hr prn BP>160/90 Discharge Planning awaiting final recs from neuro Problem Qualifiers (1) TIA (transient ischemic attack): Qualified Code: G45.9 - Transient cerebral ischemia, unspecified type (2) Cephalgia: Qualified Code: R51 - Acute nonintractable headache, unspecified headache type Bessie Lazar MD Feb 03, 2017 14:18
[2017-02-03] MEDS ORDERED: POTASSIUM CHLORIDE 20 MEQ CONTROLLED RELEASE TAB PO ONE (15:30)
[2017-02-03] MEDS: LISINOPRIL 20 MG TAB PO SCH (17:07)
[2017-02-03] MEDS ORDERED: LISI-515 PO (17:17)
[2017-02-03] MEDS ORDERED: ASPI81CH25 PO (17:17)
[2017-02-03] MEDS ORDERED: ATOR40TA16 PO (17:17)
--- NOTE | 2017-02-03 17:19 | HHI.DS ---
Discharge Summary Admission Date Feb 01, 2017 at 16:16 Admitting Diagnosis TIA, CVA rule out, cephaglia (1) TIA (transient ischemic attack) ICD Code: G45.9 (2) Cephalgia ICD Code: R51 (3) HTN (hypertension) ICD Code: I10 Brief History - From Admission 46 y/o female with a history of HTN and migraines presented to the ED with complaints of a GOVEA, blurry vision and left leg numbness. Patient states Wednesday she woke up with a throbbing headache, 8/10, blurry vision and left leg numbness, She preceded then to go back to sleep. When she woke up and continued throughout the day her vision began to get better but she still had a headache and numbness. She came to the hospital today because she could not take the pain from her leg and head anymore. She states her vision is now back to baseline but her headache is still about a 6-7 and her leg is painful and numb. Nothing makes the pain better or worse in her leg. She has not taken her blood pressure medications for more than six months because she does not have a PCP. She use to take clonidine, lisinopril and nifedipine. She denies any chest pain, sob, fever or chills. CBC/BMP: 02/02/17 0754 02/02/17 0754 Significant Findings Laboratory Tests Test 02/01/17 02/02/17 12:45 07:54 Potassium Level 3.1 MEQ/L 3.0 MEQ/L (3.5-5.1) (3.5-5.1) Creatinine 1.06 MG/DL (0.50-1.00) Estimat Glomerular Filtration 67 ML/MIN (>89) 87 ML/MIN (>89) Rate Lymphocytes (%) (Auto) 47.8 % (9.0-44.0) Monocytes (%) (Auto) 9.0 % (0.0-8.0) Chloride Level 108 MEQ/L (98-107) Blood Urea Nitrogen 6 MG/DL (7-18) Calcium Level 8.1 MG/DL (8.5-10.1) Cholesterol Level 204 MG/DL (120-200) LDL Cholesterol 140 MG/DL (0-99) PE at Discharge GENERAL: This is a well-nourished, well-developed patient, in no apparent distress. HEAD: Atraumatic. Normocephalic. EYES: Pupils equal round and reactive. EOMI ENT: Nose without drainage. Airway patent. NECK: Trachea midline. No JVD or lymphadenopathy. Supple, nontender, no meningeal signs. CARDIOVASCULAR: Regular rate and rhythm without murmurs. RESPIRATORY: Clear to auscultation. Breath sounds equal bilaterally. No wheezes , rales, or rhonchi. GASTROINTESTINAL: Abdomen soft, non-tender, nondistended. No hepato-splenomegaly , or palpable masses. No guarding. MUSCULOSKELETAL: Extremities without edema. No joint tenderness, effusion, or edema noted. No calf tenderness. NEUROLOGICAL: Awake and alert. Motor and sensory grossly within normal limits. LLE numbness. Five out of 5 muscle strength in all muscle groups. Normal speech. Discharge Disposition: Discharge Home Discharge Instructions DIET: Follow Instructions for: Heart Healthy Diet Activities you can perform: Regular-No Restrictions Bessie Lazar MD Feb 03, 2017 17:19
[2017-02-03] MEDS: NIFEdipine 30 MG SUSTAINED RELEASE TAB PO SCH (21:25)
[2017-02-04] VITALS: BP 148/83; PULSE 54; RESP 20; TEMP 98.2; O2SAT 99
[2017-02-04 04:00] VITALS: BP 128/87; PULSE 78; RESP 20; TEMP 98.4; O2SAT 98
[2017-02-04] MEDS: SODIUM CHLOR 0.9% 1000 ML INJ 1,000 ML IV SCH (06:05)
[2017-02-04 08:00] VITALS: BP 122/79; PULSE 70; RESP 20; TEMP 98.6; O2SAT 100
[2017-02-04] MEDS: SODIUM CHLORIDE 0.9% FLUSH 10 ML FLUSH IV FLUSH SCH (09:00)
[2017-02-04] MEDS: ASPIRIN 81 MG CHEW TAB PO SCH (09:39)
[2017-02-04] MEDS: ATORVASTATIN 40 MG TAB PO SCH (09:39)
[2017-02-04] MEDS: LISINOPRIL 20 MG TAB PO SCH (09:39)
[2017-02-04] MEDS: NIFEdipine 30 MG SUSTAINED RELEASE TAB PO SCH (09:39)
[2017-02-04] MEDS: DOCUSATE SODIUM 50 MG/SENNA 8.6 MG TAB PO SCH (09:40)
[2017-02-04] MEDS: FAMOTIDINE 20 MG TAB PO SCH (09:40)
[2017-02-04] MEDS: ACETAMINOPHEN/HYDROcodone 325 MG/10 MG TAB PO PRN ×2 (09:47→12:47)
[2017-02-04] MEDS ORDERED: GABA300C5 PO (11:09)
[2017-02-04] MEDS ORDERED: NIFE30TA8 PO (11:09)
[2017-02-04] MEDS ORDERED: GABAPENTIN 100 MG CAP PO ONE (11:15)
--- NOTE | 2017-02-04 11:15 | HHI.DS ---
Discharge Summary Admission Date Feb 01, 2017 at 16:16 Discharge Date: Feb 04, 2017 Admitting Diagnosis TIA, CVA rule out, cephaglia (1) TIA (transient ischemic attack) ICD Code: G45.9 Diagnosis: Principal (2) Cephalgia ICD Code: R51 Diagnosis: Secondary (3) HTN (hypertension) ICD Code: I10 Diagnosis: Secondary Procedures None Brief History - From Admission 46 y/o female with a history of HTN and migraines presented to the ED with complaints of a GOVEA, blurry vision and left leg numbness. Patient states Wednesday she woke up with a throbbing headache, 8/10, blurry vision and left leg numbness, She preceded then to go back to sleep. When she woke up and continued throughout the day her vision began to get better but she still had a headache and numbness. She came to the hospital today because she could not take the pain from her leg and head anymore. She states her vision is now back to baseline but her headache is still about a 6-7 and her leg is painful and numb. Nothing makes the pain better or worse in her leg. She has not taken her blood pressure medications for more than six months because she does not have a PCP. She use to take clonidine, lisinopril and nifedipine. She denies any chest pain, sob, fever or chills. CBC/BMP: 02/02/17 0754 02/02/17 0754 Significant Findings Laboratory Tests Test 02/01/17 02/02/17 12:45 07:54 Potassium Level 3.1 MEQ/L 3.0 MEQ/L (3.5-5.1) (3.5-5.1) Creatinine 1.06 MG/DL (0.50-1.00) Estimat Glomerular Filtration 67 ML/MIN (>89) 87 ML/MIN (>89) Rate Lymphocytes (%) (Auto) 47.8 % (9.0-44.0) Monocytes (%) (Auto) 9.0 % (0.0-8.0) Chloride Level 108 MEQ/L (98-107) Blood Urea Nitrogen 6 MG/DL (7-18) Calcium Level 8.1 MG/DL (8.5-10.1) Cholesterol Level 204 MG/DL (120-200) LDL Cholesterol 140 MG/DL (0-99) Imaging Last Impressions Lumbar Spine MRI 02/03/17 0000 Signed Impressions: Service Date/Time: Friday, February 03, 2017 12:13 - CONCLUSION: 1. Disc bulges at L3-4 and L4-5 levels without canal stenosis. 2. Small to moderate central protrusion abuts the S1 nerve roots in the lateral recesses but greater on the left. This likely accounts for patient's symptoms. No canal stenosis. Pj De Oliveira MD Head Magnetic Resonance Angiography 02/03/17 0000 Signed Impressions: Service Date/Time: Friday, February 03, 2017 12:13 - CONCLUSION: 1. Normal variants as described above. 2. No large vessel stenosis or aneurysm. Pj De Oliveira MD Brain MRI 02/03/17 0000 Signed Impressions: Service Date/Time: Friday, February 03, 2017 12:13 - CONCLUSION: 1. No acute intracranial abnormality. 2. Prominent white matter changes could be chronic ischemic small vessel vasculopathy versus demyelinating process. Pj De Oliveira MD Abdomen X-Ray 02/03/17 0000 Signed Impressions: Service Date/Time: Friday, February 03, 2017 11:32 - CONCLUSION: Normal examination. Stewart Nguyen MD Lower Extremity Ultrasound 02/01/17 220 Signed Impressions: Service Date/Time: Wednesday, February 01, 2017 21:48 - CONCLUSION: Normal examination. Eduard Mosqueda MD Head CT 02/01/17 1243 Signed Impressions: Service Date/Time: Wednesday, February 01, 2017 14:15 - CONCLUSION: 1. Small focus of decreased density involving the right periventricular frontoparietal white matter. This could relate to a focal age indeterminate lacunar infarction or more focal area of chronic small vessel ischemic change. MRI could help differentiate. 2. Otherwise, no acute intracranial abnormality. Paul Dumont Jr., MD Chest X-Ray 02/01/17 1243 Signed Impressions: Service Date/Time: Wednesday, February 01, 2017 12:51 - CONCLUSION: Normal examination. Stewart Nguyen MD Carotid Artery Ultrasound 02/01/17 0000 Signed Impressions: Service Date/Time: Wednesday, February 01, 2017 20:04 - CONCLUSION: 1. No evidence for hemodynamically significant stenosis. Eduard Mosqueda MD PE at Discharge GENERAL: Well-developed well-nourished. In no acute distress. SKIN: Warm and dry. No lesions noted. HEENT: Normocephalic. Pupils equal and round. Mucous membranes pink and moist. CARDIOVASCULAR: Regular rate and rhythm. No murmur appreciated. RESPIRATORY: No accessory muscle use. Clear to auscultation. Breath sounds equal bilaterally. GASTROINTESTINAL: Abdomen soft, non-tender, nondistended. Bowel sounds x4. MUSCULOSKELETAL: No obvious deformities. No clubbing or cyanosis. No edema. NEUROLOGICAL: Awake and alert. No focal neurological deficits. Moves upper and lower extremities spontaneously. Normal speech. Strength 5/5. PSYCHIATRIC: Appropriate mood and affect; insight and judgment normal. Pt update on day of discharge The patient is doing well today. She denies any headache or vision changes. She continues to have some left leg numbness. She states that she does not like the [place], and is asking if she could be on gabapentin. She understands the importance of outpatient follow-up. BP is better controlled today. Hospital Course TIA, presented with left leg numbness and pain -Carotid US unremarkable -Brain MRI/MRA: No acute intracranial abnormality; Prominent white matter changes could be chronic ischemic small vessel vasculopathy versus demyelinating process. No large vessel stenosis or aneurysm -MRI L-spine: Disc bulges at L3-4 and L4-5 levels without canal stenosis; Small to moderate central protrusion abuts the S1 nerve roots in the lateral recesses but greater on the left - This likely accounts for patient's symptoms. No canal stenosis -Neurology consulted, Dr. Buenrostro recommended outpatient follow-up with him in 3 weeks. -ASA daily -Lipid panel LDL 140, HDL 40, triglycerides 118. Lipitor 40 mg daily -PT consulted, recommends no restrictions -Gabapentin for neuropathic pain Cephalalgia with blurry vision, may be related to HTN. Head imaging essentially unremarkable as above -Improved HTN, initially permissive hypertension, CVA ruled out, BP meds resumed -Continue home lisinopril. -BP remain uncontrolled, nifedipine added with good effect Discussed with PA Kevin Morro patient evaluated and agree with Discharge. Pt Condition on Discharge: Stable Discharge Disposition: Discharge Home Discharge Time: > 30 minutes Discharge Instructions DIET: Follow Instructions for: Heart Healthy Diet Activities you can perform: Regular-No Restrictions Follow up Referrals: Neurology - 3 Weeks PCP Follow-up - 1 Week New Medications: Gabapentin (Gabapentin) 300 Mg Cap 300 MG PO HS neuropathy #30 Ref 0 CAP Aspirin (Aspirin Low Strength) 81 Mg Chew 81 MG PO DAILY Days 30 EA Atorvastatin (Atorvastatin) 40 Mg Tab 40 MG PO DAILY Days 30 TAB Lisinopril (Lisinopril) 20 Mg Tab 20 MG PO DAILY Days 30 TAB Nifedipine ER 24 HR (Nifedipine ER 24 HR) 30 Mg Tab 30 MG PO DAILY Blood Pressure Management #30 TAB Morro [place] Feb 04, 2017 11:15 Matty Liriano MD Feb 04, 2017 15:45
[2017-02-04 12:00] VITALS: PULSE 67; RESP 20; TEMP 98.5; O2SAT 99
[2017-02-04 13:05] VITALS: PULSE 73
== END 2017-02-04 15:25 | disposition home or self-care (01) | DRG 69 ==
LOC: NEPC 12:08 → NEDA 15:42 → OBSVTOIN 16:16 → N05B 19:37
PROVIDERS: ADMIT Internal Medicine; ATTEND Internal Medicine
DX: G45.9 Transient cerebral ischemic attack, unspecified (principal); I10 Essential (primary) hypertension; F32.9 Major depressive disorder, single episode, unspecified; G43.909 Migraine, unspecified, not intractable, without status migrainosus; E87.6 Hypokalemia; H53.8 Other visual disturbances
CPT/HCPCS: 70450; 70544; 70553; 71010; 72148; 74000; 80048; 80061; 84443; 84702; 85025; 93880; 93971; A9579; J0780; J1170; J1200; J2405; J7030

== ENCOUNTER 2017-04-05 15:57 | Emergency (ER) | payer MEDICAID, OTHER ==
[~2017-04-05 15:57] MED LIST changes: +ASPI81CH25 PO; +ATOR40TA16 PO; +GABA300C5 PO; -IBUP600T26 PO; +LISI-515 PO; -LISI10TA PO; -METO50CR PO; +NIFE30TA8 PO; -ROBA750T3 PO; -TRAM50 PO
[2017-04-05 16:00] VITALS: BP 162/82; PULSE 82; RESP 18; TEMP 99.5; O2SAT 96
[2017-04-05] MEDS ORDERED: AMOX875T PO (16:46)
--- NOTE | 2017-04-05 16:46 | PD ---
HPI Chief Complaint: ENT Complaint Time Seen by Provider: 16:35 Travel History International Travel<30 days: No Contact w/Intl Traveler<30days: No Traveled to known affect area: No History of Present Illness HPI 46-year-old female here for evaluation of sore throat. Patient reports throat pain since last night. Pain is moderate, worse with swallowing. She is able to swallow and tolerate her secretions. She has also had a slight nonproductive cough. She has not noted any fevers. PFSH Past Medical History Depression: Yes Cancer: No Cardiovascular Problems: Yes High Cholesterol: Yes Endocrine: No Genitourinary: No Hypertension: Yes Immune Disorder: No Musculoskeletal: No Neurologic: No Psychiatric: No Reproductive: No Respiratory: No ?: Not Tubal Ligation: Yes Past Surgical History AICD: No Arteriovenous Shunt: No Hysterectomy: No Insulin Pump: No Joint Replacement: No Pacemaker: No Social History Alcohol Use: Yes Tobacco Use: No Substance Use: No Allergies-Medications (Allergen,Severity, Reaction): Coded Allergies: amlodipine (Unverified Allergy, Severe, Hives, 04/05/17) bupropion (Unverified Allergy, Severe, Hives, 04/05/17) Reported Meds & Prescriptions Reported Meds & Active Scripts Active Nifedipine ER 24 HR (Nifedipine) 30 Mg Tab 30 Mg PO DAILY Gabapentin 300 Mg Cap 300 Mg PO HS Lisinopril 20 Mg Tab 20 Mg PO DAILY 30 Days Atorvastatin (Atorvastatin Calcium) 40 Mg Tab 40 Mg PO DAILY 30 Days Aspirin Low Strength (Aspirin) 81 Mg Chew 81 Mg PO DAILY 30 Days Review of Systems Except as stated in HPI: all other systems reviewed are Neg Physical Exam Narrative GENERAL: Well-developed, well-nourished, comfortable, no acute distress. SKIN: Focused skin assessment warm/dry. No rash. HEAD: Atraumatic. Normocephalic. EYES: Pupils equal and round. No scleral icterus. No injection or drainage. ENT: Mucous membranes pink and moist. Pharyngeal erythema with slight bilateral tonsillar exudates. Uvula is midline. Normal phonation. No drooling or stridor. NECK: Trachea midline. No JVD. No nuchal rigidity. CARDIOVASCULAR: Regular rate and rhythm. RESPIRATORY: No accessory muscle use. Clear to auscultation. Breath sounds equal bilaterally. MUSCULOSKELETAL: No obvious deformities. No clubbing. No cyanosis. No edema. NEUROLOGICAL: Awake and alert. No obvious cranial nerve deficits. Motor grossly within normal limits. Normal speech. PSYCHIATRIC: Appropriate mood and affect; insight and judgment normal. Data Data Last Documented VS Vital Signs Date Time Temp Pulse Resp B/P (MAP) Pulse Ox O2 Delivery O2 Flow Rate FiO2 04/05/17 16:00 99.5 82 18 162/82 (108) 96 MDM Medical Decision Making Medical Screen Exam Complete: Yes Emergency Medical Condition: Yes Differential Diagnosis Pharyngitis, strep pharyngitis, viral pharyngitis, tonsillitis, peritonsillar abscess/retropharyngeal abscess unlikely, Narrative Course Vital signs show heart rate 82, blood pressure 162/82, pulse ox 96% on room air , temp of 99.5F. This is a 46-year-old female who is here for evaluation of sore throat. She does have an erythematous pharynx with slight bilateral tonsillar exudates. Uvula is midline. No clinical exam findings to suggest deep space abscess. No drooling or stridor. Patient has children at home. Patient believes she may have strep throat. Plan at this time is to start the patient on amoxicillin. She is stable for discharge home with outpatient follow-up with a primary care physician this week. Patient also advised to take ibuprofen for pain and to stay hydrated with plenty of fluids. She was informed on when to return to the emergency department. She verbalizes understanding and agreement with plan. Diagnosis Primary Impression: Pharyngitis Qualified Codes: J02.9 - Acute pharyngitis, unspecified Referrals: [facility] 3 days Additional Instructions: Follow-up with a primary care physician this week. Take antibiotic as prescribed. Stay hydrated with plenty of fluids. Use ibuprofen for pain. Return to the emergency department for worsening symptoms or any other concerns. Scripts Amoxicillin (Amoxicillin) 875 Mg Tab 875 MG PO BID for Infection for 10 Days, #20 TAB 0 Refills Prov: Owen Harper MD 04/05/17 Disposition: 01 DISCHARGE HOME Condition: Stable Owen Harper MD Apr 05, 2017 16:46
== END 2017-04-05 17:14 | disposition home or self-care (01) ==
LOC: PHED 15:57
DX: J02.9 Acute pharyngitis, unspecified (principal); E78.00 Pure hypercholesterolemia, unspecified; I10 Essential (primary) hypertension
CPT/HCPCS: 99283